=== PATIENT | female | born 1965 | race Caucasian/White ===

== ENCOUNTER 2017-05-09 08:49 | Emergency (ER) | payer MEDICAID ==
[~2017-05-09] VITALS: Ht 157.5 cm; Wt 90.7 kg
[2017-05-09 09:01] VITALS: BP_SYST 119
[2017-05-09] MEDS ORDERED: ONDANSETRON 4 MG ODT TAB PO ONE (09:30)
[2017-05-09] MEDS ORDERED: HYDROmorphone 1 MG INJ. 1 MG/ML AMPUL IM ONE (09:30)
[2017-05-09 10:06] VITALS: BP_SYST 115
== END 2017-05-09 10:06 | disposition home or self-care (01) ==
LOC: SED 08:49
DX: M54.40 Lumbago with sciatica, unspecified side (principal)
CPT/HCPCS: 81025; 96372; 99283; J1170; Q0162

== ENCOUNTER 2020-02-19 16:48 | Emergency (ER) | payer MEDICAID ==
[~2020-02-19] VITALS: Ht 162.6 cm; Wt 90.7 kg
[2020-02-19 17:00] VITALS: BP_SYST 117
[2020-02-19] MEDS ORDERED: KETOROLAC TROMETHAMINE 60 MG/2 ML VIAL IM ONE (21:15)
[2020-02-19 22:30] VITALS: BP_SYST 117
== END 2020-02-19 22:30 | disposition home or self-care (01) ==
LOC: SED 16:48
DX: S43.51XA Sprain of right acromioclavicular joint, initial encounter (principal); E78.00 Pure hypercholesterolemia, unspecified; W01.0XXA Fall on same level from slipping, tripping and stumbling without subsequent striking against object, initial encounter; Y93.89 Activity, other specified; Y92.89 Other specified places as the place of occurrence of the external cause; Y99.8 Other external cause status
CPT/HCPCS: 71045; 72040; 73030; 96372; 99284; J1885

== ENCOUNTER 2020-11-25 16:35 | Emergency (ER) | payer MEDICAID ==
[~2020-11-25] VITALS: Ht 160 cm; Wt 68.0 kg
[2020-11-25 16:35] VITALS: BP_SYST 143
[2020-11-25] MEDS: NACL 0.9% 1,000 ML IV ONE (17:52)
[2020-11-25 17:54] LABS: BILIRUBIN,URINE NEGATIVE (NEGATIVE); BLOOD, URINE NEGATIVE (NEGATIVE); CLARITY/URINE CLEAR (CLEAR); COLOR,URINE YELLOW (YELLOW); GLUCOSE,URINE NEGATIVE (NEGATIVE); KETONES,URINE NEGATIVE (NEGATIVE); LEUKOCYTE ESTERASE ,URINE 1+ (NEGATIVE); NITRITE, URINE NEGATIVE (NEGATIVE); PROTEIN URINE NEGATIVE (NEGATIVE); UROBILINOGEN,URINE 0.2 (0.2-1.0)
[2020-11-25] MEDS: METOCLOPRAMIDE HCL 10 MG/2 ML VIAL IVP ONE (18:03)
[2020-11-25] MEDS: KETOROLAC TROMETHAMINE 30 MG VIAL IVP ONE (18:06)
[2020-11-25 18:22] LABS: BACTERIA,URINE RARE /HPF (None Seen); RBC,URINE NONE SEEN /HPF (0-3); WBC,URINE 0-3 /HPF (0-3)
[2020-11-25 18:34] LABS: BASOPHILS % (AUTO) 0.5 % (0.0-2.0); EOSINOPHILS # (AUTO) 0.1 K/uL (0.0-0.4); EOSINOPHILS % (AUTO) 1.3 % (0.0-4.0); HEMATOCRIT 40.7 % (36-48); HEMOGLOBIN 13.7 g/dL (12.0-16.0); LYMPHOCYTES # (AUTO) 3.5 K/uL (1.0-5.5); LYMPHOCYTES % (AUTO) 43.2 % (20.5-51.5); MEAN CORPUSCULAR HEMOGLOBIN 30 pg (27-31); MEAN CORPUSCULAR HGB CONC 34 % (32-36); MEAN CORPUSCULAR VOLUME 88 fL (79.0-98.0); MONOCYTES # (AUTO) 0.5 K/uL (0.0-1.0); MONOCYTES % (AUTO) 6.4 % (1.7-9.3); NEUTROPHILS # (AUTO) 3.9 K/uL (1.8-7.7); NEUTROPHILS % (AUTO) 48.6 % (40.0-70.0); PLATELET COUNT (AUTO) 290 K/uL (130-430); RED BLOOD CELL COUNT(AUTO) 4.61 MIL/uL (4.2-6.2); RED CELL DISTRIBUTION WIDTH 12.7 % (9.0-15.0); WHITE BLOOD COUNT (AUTO) 8.1 K/uL (4.8-10.8)
[2020-11-25 18:44] LABS: CREATININE 0.89 mg/dL (0.55-1.30); POTASSIUM 4.4 mmol/L (3.5-5.1)
[2020-11-25 18:50] LABS: ALBUMIN 3.7 g/dL (3.4-4.8); TOTAL BILIRUBIN 0.1 mg/dL (0.0-1.0)
[2020-11-25] MEDS ORDERED: IBUP-1969 PO (19:02)
[2020-11-25] MEDS ORDERED: CYCL-10 PO (19:02)
[2020-11-25 19:10] VITALS: BP_SYST 61
== END 2020-11-25 19:09 | disposition home or self-care (01) ==
LOC: SED 16:35
DX: M54.81 Occipital neuralgia (principal); E78.00 Pure hypercholesterolemia, unspecified; Z79.899 Other long term (current) drug therapy
CPT/HCPCS: 36415; 70450; 76376; 80053; 81000; 85025; 87086; 96361; 96374; 96375; 99284; J1885; J2765; J7030

== ENCOUNTER 2020-12-05 10:28 | Emergency (ER) | payer MEDICAID ==
[~2020-12-05] VITALS: Ht 157.5 cm; Wt 59.0 kg
[~2020-12-05 10:28] MED LIST: CYCL-10 PO; IBUP-1969 PO
[2020-12-05 10:42] VITALS: BP_SYST 117
[2020-12-05 11:00] LABS: BILIRUBIN,URINE NEGATIVE (NEGATIVE); COLOR,URINE YELLOW (YELLOW); GLUCOSE,URINE NEGATIVE (NEGATIVE); KETONES,URINE NEGATIVE (NEGATIVE); LEUKOCYTE ESTERASE ,URINE TRACE (NEGATIVE); NITRITE, URINE NEGATIVE (NEGATIVE); PH,URINE 5.5 (5.0-8.0); PROTEIN URINE NEGATIVE (NEGATIVE); UROBILINOGEN,URINE 0.2 (0.2-1.0)
[2020-12-05] MEDS ORDERED: KETOROLAC TROMETHAMINE 60 MG/2 ML VIAL IM ONE (11:00)
[2020-12-05 11:06] LABS: BLOOD, URINE TRACE (NEGATIVE); CLARITY/URINE SLIGHTLY HAZY (CLEAR)
[2020-12-05 11:27] LABS: BACTERIA,URINE FEW /HPF (None Seen); WBC,URINE 0-3 /HPF (0-3)
[2020-12-05] MEDS ORDERED: NACL 0.9% 1,000 ML IV ONE (11:30)
[2020-12-05 11:49] LABS: BASOPHILS % (AUTO) 0.7 % (0.0-2.0); EOSINOPHILS % (AUTO) 0.6 % (0.0-4.0); HEMATOCRIT 42.5 % (36-48); HEMOGLOBIN 14.3 g/dL (12.0-16.0); LYMPHOCYTES # (AUTO) 2.5 K/uL (1.0-5.5); LYMPHOCYTES % (AUTO) 40.2 % (20.5-51.5); MEAN CORPUSCULAR HEMOGLOBIN 30 pg (27-31); MEAN CORPUSCULAR HGB CONC 34 % (32-36); MEAN CORPUSCULAR VOLUME 88 fL (79.0-98.0); MONOCYTES # (AUTO) 0.3 K/uL (0.0-1.0); NEUTROPHILS # (AUTO) 3.4 K/uL (1.8-7.7); NEUTROPHILS % (AUTO) 53.5 % (40.0-70.0); PLATELET COUNT (AUTO) 296 K/uL (130-430); RED BLOOD CELL COUNT(AUTO) 4.84 MIL/uL (4.2-6.2); RED CELL DISTRIBUTION WIDTH 12.5 % (9.0-15.0); WHITE BLOOD COUNT (AUTO) 6.3 K/uL (4.8-10.8)
[2020-12-05 12:11] LABS: CALCIUM 9.3 mg/dL (8.4-11.0); CREATININE 0.71 mg/dL (0.55-1.30); POTASSIUM 4.1 mmol/L (3.5-5.1)
[2020-12-05 12:16] LABS: TOTAL BILIRUBIN 0.2 mg/dL (0.0-1.0)
[2020-12-05 12:17] LABS: ALBUMIN 3.4 g/dL (3.4-4.8)
[2020-12-05] MEDS ORDERED: IBUP-1969 PO (13:22)
[2020-12-05] MEDS ORDERED: HYDR-3917 PO (13:22)
[2020-12-05 14:24] VITALS: BP_SYST 113
== END 2020-12-05 14:27 | disposition home or self-care (01) ==
LOC: SED 10:28
DX: R10.9 Unspecified abdominal pain (principal); E78.00 Pure hypercholesterolemia, unspecified; Z79.899 Other long term (current) drug therapy
CPT/HCPCS: 36415; 74176; 76376; 80053; 81000; 83690; 85025; 96360; 96372; 99284; J1885; J7030

== ENCOUNTER 2021-01-24 20:04 | Emergency (ER) | payer MEDICAID ==
[~2021-01-24] VITALS: Ht 152.4 cm; Wt 90.7 kg
[~2021-01-24 20:04] MED LIST changes: +HYDR-3917 PO
[2021-01-24 20:10] VITALS: BP_SYST 129
--- NOTE | 2021-01-24 20:10 | NUR ---
Patient triaged and placed in waiting room. VSS and patient appears in no acute distress at this time. Accompanied by FAM MEMBER, awaiting available bed, and MD notified of need for MSE.
--- NOTE | 2021-01-24 22:37 | NUR ---
Patient to ER bed APPLE BED to gown for evaluation. Side rails up. Report given to DINORAH BAR.
--- NOTE | 2021-01-24 22:40 | NUR ---
Pt brought by self, ambulatory, A&Ox4, pt presents to ER with weakness and pain on bilateral hands, denies other symptoms, skin pink and warm,cap refill <3, VSS.
--- NOTE | 2021-01-24 22:45 | NUR ---
Dr Gonsalves evaluating patient at bedside
[2021-01-24 23:35] LABS: BASOPHILS # (AUTO) 0.1 K/uL (0.0-0.2); BASOPHILS % (AUTO) 1.6 % (0.0-2.0); EOSINOPHILS # (AUTO) 0.1 K/uL (0.0-0.4); EOSINOPHILS % (AUTO) 1.9 % (0.0-4.0); HEMATOCRIT 37.6 % (36-48); HEMOGLOBIN 12.7 g/dL (12.0-16.0); LYMPHOCYTES % (AUTO) 45.2 % (20.5-51.5); MEAN CORPUSCULAR HEMOGLOBIN 30 pg (27-31); MEAN CORPUSCULAR HGB CONC 34 % (32-36); MEAN CORPUSCULAR VOLUME 89 fL (79.0-98.0); MONOCYTES # (AUTO) 0.6 K/uL (0.0-1.0); MONOCYTES % (AUTO) 8.9 % (1.7-9.3); NEUTROPHILS # (AUTO) 2.8 K/uL (1.8-7.7); NEUTROPHILS % (AUTO) 42.4 % (40.0-70.0); PLATELET COUNT (AUTO) 262 K/uL (130-430); RED BLOOD CELL COUNT(AUTO) 4.22 MIL/uL (4.2-6.2); RED CELL DISTRIBUTION WIDTH 13.5 % (9.0-15.0); WHITE BLOOD COUNT (AUTO) 6.6 K/uL (4.8-10.8)
[2021-01-24 23:46] LABS: ANION GAP 8 (5-15); CALCIUM 8.8 mg/dL (8.4-11.0); CHLORIDE 105 mmol/L (98-107); GLUCOSE 103 mg/dL (70-99); SODIUM SERUM 139 mmol/L (136-145); UREA NITROGEN, BLOOD 19 mg/dL (8-21)
[2021-01-24 23:47] LABS: GFR AFRICAN AMERICAN 112 mL/min (>90)
[2021-01-24 23:54] LABS: ALANINE AMINOTRANSFERASE 24 U/L (12-78); ALBUMIN 3.3 g/dL (3.4-4.8); ASPARTATE AMINOTRANSFERASE 22 U/L (10-37); TOTAL BILIRUBIN 0.2 mg/dL (0.0-1.0)
[2021-01-25 01:19] LABS: BILIRUBIN,URINE NEGATIVE (NEGATIVE); BLOOD, URINE NEGATIVE (NEGATIVE); CLARITY/URINE CLEAR (CLEAR); COLOR,URINE YELLOW (YELLOW); GLUCOSE,URINE NEGATIVE (NEGATIVE); KETONES,URINE NEGATIVE (NEGATIVE); LEUKOCYTE ESTERASE ,URINE 1+ (NEGATIVE); NITRITE, URINE NEGATIVE (NEGATIVE); PH,URINE 5.5 (5.0-8.0); PROTEIN URINE NEGATIVE (NEGATIVE); UROBILINOGEN,URINE 0.2 (0.2-1.0)
[2021-01-25 01:34] LABS: BACTERIA,URINE FEW /HPF (None Seen); RBC,URINE 0-3 /HPF (0-3)
[2021-01-25] MEDS ORDERED: cephALEXin 500 MG CAPSULE PO ONE (02:00)
[2021-01-25] MEDS ORDERED: CEPH250C PO (02:06)
[2021-01-25 02:15] VITALS: BP_SYST 129
--- NOTE | 2021-01-25 02:15 | NUR ---
Patient given written and verbal discharge instructions and verbalizes understanding. ER MD discussed with patient the results and treatment provided. Patient in stable condition. ID arm band removed. Rx of Keflex given. Patient educated on pain management and to follow up with PMD. Pain Scale 0/10. Opportunity for questions provided and answered. Medication side effect fact sheet provided.
== END 2021-01-25 02:15 | disposition home or self-care (01) ==
LOC: SED 21:57
DX: R53.1 Weakness (principal); N39.0 Urinary tract infection, site not specified; E78.00 Pure hypercholesterolemia, unspecified; Z79.899 Other long term (current) drug therapy
CPT/HCPCS: 36415; 70450-TC; 76376; 80053; 81000; 84443; 84484; 85025; 85651-TC; 87086; 99284

== ENCOUNTER 2022-03-19 06:20 | Emergency (ER) | payer MEDICAID ==
[~2022-03-19] VITALS: Ht 157.5 cm; Wt 90.7 kg
[~2022-03-19 06:20] MED LIST changes: +CEPH250C PO; -CYCL-10 PO; +CYCL10TA24 PO
--- NOTE | 2022-03-19 06:39 | NUR ---
Patient triaged and placed in room. VSS and patient appears in no acute distress at this time. MD notified of need for MSE.
--- NOTE | 2022-03-19 06:42 | NUR ---
C/O LEFT SIDED FLANK PAIN X FEW WEEKS, PT HAS A HISTORY OF KIDNEY STONES. PAIN 7/10, THROBBING AND SHARP. PMH: HIGH CHOL
--- NOTE | 2022-03-19 07:30 | NUR ---
RECEIVED PT FROM NOC SHIFT RN. PT HAS C/O AB PAIN. URINE SAMPLE OBTAINED AND TAKEN TO LAB. PT IS AAOX4. RESP E/U. ON R/A. DENIES N/V/D/C. DISTAL PULSES NORMAL. SKIN CDI, NO EDEMA. SIDERAILS UP X2.
[2022-03-19 07:47] LABS: BILIRUBIN,URINE NEGATIVE (NEGATIVE); BLOOD, URINE NEGATIVE (NEGATIVE); CLARITY/URINE CLEAR (CLEAR); COLOR,URINE YELLOW (YELLOW); GLUCOSE,URINE NEGATIVE (NEGATIVE); KETONES,URINE NEGATIVE (NEGATIVE); LEUKOCYTE ESTERASE ,URINE NEGATIVE (NEGATIVE); NITRITE, URINE NEGATIVE (NEGATIVE); PROTEIN URINE NEGATIVE (NEGATIVE); UROBILINOGEN,URINE 0.2 (0.2-1.0)
--- NOTE | 2022-03-19 08:35 | NUR ---
PT TAKEN FOR CT SCAN.
--- NOTE | 2022-03-19 08:47 | NUR ---
PT BACK FROM CT SCAN. LABS DRAWN.
[2022-03-19 09:05] LABS: BASOPHILS % (AUTO) 0.6 % (0.0-2.0); EOSINOPHILS # (AUTO) 0.1 K/uL (0.0-0.4); EOSINOPHILS % (AUTO) 1.3 % (0.0-4.0); HEMATOCRIT 39.4 % (36-48); LYMPHOCYTES # (AUTO) 2.7 K/uL (1.0-5.5); LYMPHOCYTES % (AUTO) 41.8 % (20.5-51.5); MEAN CORPUSCULAR VOLUME 87 fL (79.0-98.0); MONOCYTES # (AUTO) 0.6 K/uL (0.0-1.0); MONOCYTES % (AUTO) 8.7 % (1.7-9.3); NEUTROPHILS # (AUTO) 3.1 K/uL (1.8-7.7); NEUTROPHILS % (AUTO) 47.6 % (40.0-70.0); PLATELET COUNT (AUTO) 257 K/uL (130-430); RED BLOOD CELL COUNT(AUTO) 4.54 MIL/uL (4.2-6.2); RED CELL DISTRIBUTION WIDTH 12.6 % (9.0-15.0); WHITE BLOOD COUNT (AUTO) 6.5 K/uL (4.8-10.8)
[2022-03-19 09:28] LABS: ANION GAP 4 (5-15); CALCIUM 9.4 mg/dL (8.4-11.0); CHLORIDE 105 mmol/L (98-107); CREATININE 0.73 mg/dL (0.55-1.30); GLUCOSE 91 mg/dL (70-99); SODIUM SERUM 141 mmol/L (136-145); UREA NITROGEN, BLOOD 14 mg/dL (8-21)
[2022-03-19 09:34] LABS: GFR AFRICAN AMERICAN 106 mL/min (>90)
[2022-03-19 10:01] LABS: ALANINE AMINOTRANSFERASE 29 U/L (12-78); ALBUMIN 3.4 g/dL (3.4-4.8); ASPARTATE AMINOTRANSFERASE 22 U/L (10-37); LIPASE 81 U/L (73-393); TOTAL BILIRUBIN < 0.1 mg/dL (0.0-1.0)
[2022-03-19 11:52] LABS: ERYTHROCYTE SEDIMENTATION RATE 40 MM/HR (0-20)
[2022-03-19 12:00] VITALS: BP_SYST 132
--- NOTE | 2022-03-19 12:15 | NUR ---
Patient given written and verbal discharge instructions and verbalizes understanding. ER MD discussed with patient the results and treatment provided. Patient in stable condition. ID arm band removed. Patient educated on pain management and to follow up with PMD. Pain Scale 0/10. Opportunity for questions provided and answered. Medication side effect fact sheet provided.
== END 2022-03-19 12:15 | disposition home or self-care (01) ==
LOC: SED 06:20
DX: R10.32 Left lower quadrant pain (principal); K59.00 Constipation, unspecified; Z79.899 Other long term (current) drug therapy
CPT/HCPCS: 36415; 76376; 80053; 81003; 83690; 85025; 85651-TC; 99284

== ENCOUNTER 2023-04-18 18:29 | Emergency (ER) | payer MEDICAID ==
[~2023-04-18] VITALS: Ht 157.5 cm; Wt 90.7 kg
[2023-04-18 18:30] VITALS: BP_SYST 122; PULSE 89; RESP 18; TEMP 97; O2SAT 98
[2023-04-18] MEDS ORDERED: guaiFENesin/DEXTROMETHORPHAN 10 ML UDC PO ONE (20:00)
[2023-04-18] MEDS ORDERED: KETOROLAC TROMETHAMINE 30 MG VIAL IM ONE (20:00)
[2023-04-18] MEDS ORDERED: BENZONATATE 100 MG CAPSULE (TESSALON) PO ONE (20:30)
[2023-04-18 20:31] LABS: INFLUENZA TYPE A Negative (NEGATIVE); INFLUENZA TYPE B NEGATIVE (NEGATIVE)
[2023-04-18] MEDS ORDERED: METOCLOPRAMIDE HCL 10 MG/2 ML VIAL IM ONE (20:45)
[2023-04-18] MEDS ORDERED: BENZ100C92 PO (21:23)
[2023-04-18] MEDS ORDERED: ZIT250 PO (21:23)
[2023-04-18 21:29] VITALS: BP_SYST 118; PULSE 72; RESP 16; TEMP 97; O2SAT 98
== END 2023-04-18 21:29 | disposition home or self-care (01) ==
LOC: SED 18:29
DX: J40 Bronchitis, not specified as acute or chronic (principal); J06.9 Acute upper respiratory infection, unspecified; R05.9 Cough, unspecified; Z79.899 Other long term (current) drug therapy; Z20.822 Contact with and (suspected) exposure to COVID-19
CPT/HCPCS: 99285; 71045; 87426; 36415; 93005; 96372; 87804 ×2; J1885; J2765

== ENCOUNTER 2023-07-02 06:51 | Emergency (ER) | payer MEDICAID ==
[~2023-07-02] VITALS: Ht 165.1 cm; Wt 90.7 kg
[~2023-07-02 06:51] MED LIST changes: +BENZ100C92 PO; +ZIT250 PO
[2023-07-02 07:08] VITALS: BP_SYST 123; PULSE 71; RESP 18; TEMP 98.3; O2SAT 98
[2023-07-02] MEDS ORDERED: BENZONATATE 100 MG CAPSULE (TESSALON) PO PRN (07:45)
[2023-07-02 07:48] LABS: INFLUENZA TYPE B NEGATIVE (NEGATIVE)
[2023-07-02 07:53] LABS: INFLUENZA TYPE A Positive (NEGATIVE)
[2023-07-02] MEDS ORDERED: OSEL75CA PO (07:56)
[2023-07-02] MEDS ORDERED: CEPH-548 PO (07:57)
[2023-07-02 08:28] VITALS: BP_SYST 123; PULSE 71; RESP 18; TEMP 98.3; O2SAT 98
== END 2023-07-02 08:28 | disposition home or self-care (01) ==
LOC: SED 06:51
DX: J10.1 Influenza due to other identified influenza virus with other respiratory manifestations (principal); N61.1 Abscess of the breast and nipple; R05.9 Cough, unspecified; Z79.899 Other long term (current) drug therapy; Z20.822 Contact with and (suspected) exposure to COVID-19
CPT/HCPCS: 36415; 71045; 99284